=== PATIENT | female | born 1985 | race Caucasian/White ===

== ENCOUNTER 2024-01-12 09:20 | Day surgery (SDC) | payer BC ==
[~2024-01-12 09:20] MED LIST: Sodium Ferric Gluconate 125 MG in Sodium Chloride 0.9% 100 ML IVPB SCH
[2024-01-12 09:41] VITALS: BP 123/78; TEMP 98.2
[2024-01-12] MEDS ORDERED: diphenhydrAMINE 50 MG/ML VIAL ONE (10:08)
[2024-01-12] MEDS: diphenhydrAMINE 50 MG/ML VIAL IVP SCH (10:10)
[2024-01-12] MEDS: Sodium Ferric Gluconate 125 MG in Sodium Chloride 0.9% 100 ML IVPB SCH (10:45)
[2024-01-12] MEDS ORDERED: FLU (Fluarix Triv) TS24-25(6MOS UP)/PF 45 MCG/0.5 ML Syringe IM ONE (12:00)
[2024-01-12] MEDS ORDERED: Sodium Ferric Gluconate 125 MG in Sodium Chloride 0.9% 100 ML IVPB SCH (15:15)
== END 2024-01-12 15:00 | disposition home or self-care (01) ==
LOC: ONC/OP 09:20
PROVIDERS: ATTEND Student in an Organized Health Care Education/Training Program
DX: D50.9 Iron deficiency anemia, unspecified (principal)
CPT/HCPCS: 96365; 96366; 96374; J1200; J2916